=== PATIENT | female | born 1940 | race Caucasian/White ===

== ENCOUNTER 2024-05-17 18:38 | Observation (INO) | payer MEDICARE, OTHER ==
[~2024-05-17] VITALS: Ht 160 cm; Wt 66.4 kg
[2024-05-17] VITALS (22 sets, daily range): BP systolic 104–185; BP diastolic 52–106
[2024-05-17] MEDS ORDERED: SODIUM CHLORIDE 0.9% 1,000 ML IV ONE (19:15)
[2024-05-17 19:30] LABS: BASO% 0.5 % (0-3); EOS% 3.7 % (0-8); HEMATOCRIT 43.3 % (37.0-47.0); IMMATURE GRANULOCYTES 0.1 % (0.0-5.0); LYMPH% 19.3 % (15-41); MEAN CELL VOLUME 100.7 fL CALC (80.0-100.0); MEAN CORPUSCULAR HGB 32.6 pG CALC (26.0-32.0); MEAN CORPUSCULAR HGB CONC 32.3 g/dL CAL (32.0-36.0); MONO% 6.3 % (2-13); NEUT# 5.43 thou/uL (2.00-7.15); NEUT% 70.1 % (42-76); RED BLOOD COUNT 4.3 mill/uL (4.20-5.60); RED CELL DISTRI WIDTH 13.2 % (11.5-15.5)
[2024-05-17 19:40] LABS: ALBUMIN 4.3 g/dL (3.2-5.0); ALKALINE PHOSPHATASE 45 u/l (38-126); ANION GAP 14 (6-22 (CALC)); BILIRUBIN, TOTAL 0.7 mg/dL (0.02-1.3); BUN 11 mg/dL (8-23); BUN/CREATININE RATIO 15 (12-20 (CALC)); CARBON DIOXIDE 31 mmol/l (22-30); CHLORIDE 101 mmol/l (95-108); CREATININE 0.8 mg/dL (0.5-1.0); ESTIMATED GFR 72 ML/MIN (>=90 (CALC)); POTASSIUM 4.1 mmol/l (3.5-5.1); SGOT/AST 55 u/l (9-36); SODIUM 142 mmol/l (137-146); TOTAL PROTEIN 7.2 g/dL (6.3-8.2)
[2024-05-17 19:42] LABS: INTERNATIONAL NORMALIZED RATIO 1.1 RATIO (0.7-1.3)
[2024-05-17 19:42] LABS: URINE BILIRUBIN - DIPSTICK Negative (NEGATIVE); URINE BLOOD DIPSTICK Trace-lysed (NEGATIVE); URINE COLOR Yellow; URINE GLUCOSE - DIPSTICK Negative (NEGATIVE); URINE KETONE Negative (NEGATIVE); URINE LEUK ESTERASE Moderate (NEGATIVE); URINE NITRITE - DIPSTICK Negative (Negative); URINE PROTEIN - DIPSTICK Negative (NEG-TRACE); URINE SPECIFIC GRAVITY 1.015; URINE UROBILINOGEN - DIPSTICK 0.2 E.U./dL (0.2)
[2024-05-17 19:43] LABS: PROTHROMBIN TIME 12.2 SECONDS (9.0-12.5)
[2024-05-17 19:47] LABS: URINE WBC >100 WBC/hpf (0-5)
[2024-05-17 19:48] LABS: URINE BACTERIA MANY hpf; URINE SQUAMOUS EPITHELIAL CELL FEW EPI/hpf (0-FEW)
[2024-05-17] MEDS ORDERED: TRAZODONE50 MG PO (20:22)
[2024-05-17] MEDS ORDERED: PAROXETINE20 MG PO (20:25)
[2024-05-17] MEDS ORDERED: TENORMIN25 MG PO (20:26)
[2024-05-17] MEDS ORDERED: LORAZEPAM0.5 MG PO (20:26)
[2024-05-17] MEDS ORDERED: HYDROCHLOROT12.5 M1 PO (20:27)
[2024-05-17] MEDS ORDERED: OMEPRAZOLE DR40 MG PO (20:28)
[2024-05-17] MEDS ORDERED: OS-CAL 500500 M1 PO (20:31)
[2024-05-17] MEDS ORDERED: ONDANSETRON 4 MG/TAB ODT PO PRN (22:55)
[2024-05-17] MEDS ORDERED: Polyethylene Glycol 3350 17 GM/PKT PO PRN (22:55)
[2024-05-17] MEDS ORDERED: IBUPROFEN 800 MG/TAB PO PRN (22:55)
[2024-05-17] MEDS ORDERED: FAMOTIDINE 10MG/ML 2ML SDV IV PRN (22:55)
[2024-05-17] MEDS ORDERED: ONDANSETRON HCl 4 MG/2 ML SDV IV PRN (22:55)
[2024-05-17] MEDS ORDERED: ALUM & MAG HYDROX-SIMETHICONE 30 ML PO PRN (22:55)
[2024-05-17] MEDS ORDERED: SODIUM CHLORIDE 0.9% 1,000 ML IV PRN (23:00)
[2024-05-17] MEDS ORDERED: ENOXAPARIN SODIUM 40 MG/0.4 ML SYR SC SCH (23:45)
[2024-05-17] MEDS ORDERED: CEPHALEXIN MONOHYDRATE 500 MG/CAP PO ONE (23:55)
[2024-05-18] VITALS (10 sets, daily range): BP systolic 126–161; BP diastolic 34–83
[2024-05-18] MEDS ORDERED: LORazepam 0.5 MG/TAB PO PRN (08:15)
[2024-05-18] MEDS ORDERED: PARoxetine 10 MG/TAB PO SCH (09:00)
[2024-05-18] MEDS ORDERED: PANTOPRAZOLE SODIUM Sesquihydr 40 MG/TAB PO SCH (09:00)
[2024-05-18] MEDS ORDERED: CEPHALEXIN500 MG PO (09:46)
[2024-05-18] MEDS ORDERED: CEPHALEXIN MONOHYDRATE 500 MG/CAP PO SCH ×2 (21:00)
[2024-05-19] MEDS ORDERED: ATENOLOL 25 MG TAB PO SCH (09:00)
== END 2024-05-18 12:47 | disposition home or self-care (01) ==
LOC: ED 18:38 → MS2 22:58
PROVIDERS: Family Medicine; ADMIT Internal Medicine; ATTEND Internal Medicine
DX: I95.1 Orthostatic hypotension (principal); N39.0 Urinary tract infection, site not specified; I10 Essential (primary) hypertension; F41.9 Anxiety disorder, unspecified; Z86.73 Personal history of transient ischemic attack (TIA), and cerebral infarction without residual deficits
CPT/HCPCS: G0378; J1650

== ENCOUNTER 2024-05-18 13:15 | Emergency (ER) | payer MEDICARE, OTHER ==
[~2024-05-18] VITALS: Ht 160 cm; Wt 72.5 kg
[~2024-05-18 13:15] MED LIST: CEPHALEXIN500 MG PO; HYDROCHLOROT12.5 M1 PO; LORAZEPAM0.5 MG PO; OMEPRAZOLE DR40 MG PO; OS-CAL 500500 M1 PO; PAROXETINE20 MG PO; TENORMIN25 MG PO; TRAZODONE50 MG PO
[2024-05-18 13:19] VITALS: BP 159/79
[2024-05-18 13:31] VITALS: BP 170/81
[2024-05-18 14:30] VITALS: BP 161/70
[2024-05-18 15:05] VITALS: BP 165/68
[2024-05-18 15:31] VITALS: BP 136/56
--- NOTE | 2024-05-20 13:56 | NUR ---
Discharge follow up call completed 05/20/24. Patient states she is not 100%, but she is improving. Patient got one of her prescribed medications and plans to return to pharmacy to get the other today. Patient has not made a follow up appointment with her PCP but will call them to see if she needs an appointment. No needs or concerns verbalized at this time.
== END 2024-05-18 15:44 | disposition home or self-care (01) ==
LOC: ED 13:15
DX: S00.03XA Contusion of scalp, initial encounter (principal); I10 Essential (primary) hypertension; F41.9 Anxiety disorder, unspecified; W19.XXXA Unspecified fall, initial encounter; Y92.007 Garden or yard of unspecified non-institutional (private) residence as the place of occurrence of the external cause; Z86.73 Personal history of transient ischemic attack (TIA), and cerebral infarction without residual deficits